=== PATIENT | female | born 1990 | race Caucasian/White ===

== ENCOUNTER 2017-03-25 21:51 | Emergency (ER) | payer MEDICAID, OTHER ==
[~2017-03-25] VITALS: Ht 170.2 cm; Wt 127.0 kg
[2017-03-25 21:56] VITALS: BP 170/99
[2017-03-25] MEDS ORDERED: fentaNYL 0.05 MG/ML VIAL IM ONE (22:30)
[2017-03-25 23:20] VITALS: BP 119/65
== END 2017-03-25 23:20 | disposition home or self-care (01) ==
LOC: MED 21:51
DX: S93.402A Sprain of unspecified ligament of left ankle, initial encounter (principal); R03.0 Elevated blood-pressure reading, without diagnosis of hypertension; W01.0XXA Fall on same level from slipping, tripping and stumbling without subsequent striking against object, initial encounter; Y93.89 Activity, other specified; Y92.89 Other specified places as the place of occurrence of the external cause; Y99.8 Other external cause status
CPT/HCPCS: 29515; 73502; 73610; 96372; 99284; J3010; Q0092